=== PATIENT | male | born 1960 | race Caucasian/White ===

== ENCOUNTER → 2021-08-27 15:39 | Outpatient (CLI) | payer OTHER, SELFPAY ==
--- NOTE | 2021-08-27 15:50 | DI.RAD.S_ITS ---
PROCEDURE: XR LUMBAR SPINE 2-3V INDICATIONS: fall, back pain TECHNIQUE: 3 views of the lumbar spine were acquired. COMPARISON: None. FINDINGS: Bones: Vertebral body height and alignment is maintained. Disc space narrowing and anterior osteophytes noted in the lower lumbar spine with sclerotic facet joints. Atherosclerotic calcification in the abdominal aorta noted without evidence of aneurysm. Normal bone mineralization. Soft tissues: Overlying bowel gas pattern is normal. No suspicious soft tissue calcifications. IMPRESSION: Lower lumbar spine degenerative disc disease and arthropathy without evidence of fracture or traumatic malalignment Approved by: Kumar Rudd M.D. on 08/27/2021 at 16:04
== END ==
PROVIDERS: Referring Provider Nurse Practitioner Family; Visit Provider Nurse Practitioner Family
DX: S39.92XA Unspecified injury of lower back, initial encounter (principal); M51.36 Other intervertebral disc degeneration, lumbar region; M47.816 Spondylosis without myelopathy or radiculopathy, lumbar region; I70.0 Atherosclerosis of aorta; W19.XXXA Unspecified fall, initial encounter
CPT/HCPCS: 72100